=== PATIENT | male | born 1995 | race American Indian/Alaskan Native ===

== ENCOUNTER 2017-01-12 13:52 | Emergency (ER) | payer OTHER ==
--- NOTE | 2017-01-12 14:05 | Emergency Department Report ---
Chief Complaint: Nausea/Vomiting/Diarrhea Stated Complaint: SORE THROAT Time Seen by Provider: 01/12/17 14:05 - HPI History of Present Illness: 21-year-old male presents to ED with left-sided throat pain and pain with swallowing 3 days. Patient was seen here 2 days ago but states symptoms have gotten worse. He states that his throat is gotten bigger and more painful. He admits mild nausea and difficulty eating or swallowing due to pain He denies fever/chills/ - ROS Review of Systems: As noted in HPI - Exam Vital Signs: Vital Signs 01/12/17 13:56 Temperature 99 F Pulse Rate 55 L Respiratory 18 Rate Blood Pressure 144/91 O2 Sat by Pulse 100 Oximetry Physical Exam: GENERAL: Alert and oriented x3, no apparent distress, Normal Gait, atraumatic. EARS: symetrical, atraumatic, non tender, ear canal clear and moderate cerumen, tympanic membrance non inflamed. gross auditory nml bilaterally. MOUTH:Mouth is well hydrated and without lesions. left Tonsil erythematous and swollen, Uvula midline, Tongue not elevated. Mucous membranes are moist. Posterior pharynx clear, no exudate or lesions. Patent airways. NECK: Supple. Non edematous, left-sided lymphadenopathy MSE screening note: Focused history and physical exam performed. Due to findings the following was ordered: ED Medical Decision Making - Medical Decision Making 21-year-old male presents with peritonsillar abscess CBC, CMP, mono test ordered. consider CT neck with IV contrast is x-ray not definitive - Differential Diagnosis 1. Peritonsillar abscess ED Disposition for MSE Condition: Stable
--- NOTE | 2017-01-12 14:41 | XRay Report ---
Soft tissue neck 2 views: History: Varicocele swelling neck pain. Findings: Laryngeal ventricular colon appears normal. The paravertebral soft tissue appears normal. Impression: Essentially negative soft tissue neck.
[2017-01-12 15:05] LABS: Alanine Aminotransferase 9 units/L (7-56); Albumin 4.4 g/dL (3.9-5); Albumin/Globulin Ratio 1.2 %; Alkaline Phosphatase 53 units/L (35-129); Anion Gap 18 mmol/L; BUN/Creatinine Ratio 13; Blood Urea Nitrogen 9 mg/dL (9-20); Calcium 9.8 mg/dL (8.4-10.2); Carbon Dioxide 31 mmol/L (22-30); Glucose 111 mg/dL (75-100); Potassium 4.6 mmol/L (3.6-5.0); Sodium 139 mmol/L (137-145); Total Protein 8.1 g/dL (6.3-8.2)
[2017-01-12 15:22] LABS: Basophils % (Auto) 0.3 % (0.0-1.8); Hematocrit 42.5 % (35.5-45.6); Hemoglobin 14.8 gm/dl (11.8-15.2); Mean Corpuscular HGB Conc 35 % (32-34); Mean Corpuscular Hemoglobin 31 pg (28-32); Mean Corpuscular Volume 89 fl (84-94); Platelet Count 240 K/mm3 (140-440); Red Blood Count 4.81 M/mm3 (3.65-5.03); Red Cell Distribution Width 13.2 % (13.2-15.2); White Blood Count 10.2 K/mm3 (4.5-11.0)
[2017-01-12] MEDS ORDERED: ZOFRAN IV ONE (16:34)
[2017-01-12] MEDS ORDERED: CLEOCIN 900 MG/50 mL 900 MG/50 ML BAG IV ONE (16:34)
[2017-01-12] MEDS ORDERED: DECADRON IV ONE (16:34)
--- NOTE | 2017-01-12 16:40 | Emergency Department Report ---
ED General Adult HPI - General Chief complaint: Nausea/Vomiting/Diarrhea Stated complaint: SORE THROAT Time Seen by Provider: 01/12/17 14:05 Source: patient Mode of arrival: Ambulatory Limitations: No Limitations - History of Present Illness Initial comments: Patient is 21 years old male, this is his second visit to the ER he was seen here 2 days ago for upper respiratory infection. Patient stated that he is not feeling better and he is having pain in his left throat specially when he swallow. Denied any difficulty breathing or shortness of breath. Patient also reported nausea and vomiting. - Related Data Previous Rx's Medication Instructions Recorded Last Taken Type Clindamycin [Clindamycin CAP] 300 mg PO Q8H #21 cap 01/12/17 Unknown Rx HYDROcodone/APAP 5-325 [[place] 1 each PO Q6HR PRN #14 tablet 01/12/17 Unknown Rx 5/325] Ondansetron [Zofran Odt] 4 mg PO Q8HR PRN #14 tab.rapdis 01/12/17 Unknown Rx Prednisone [predniSONE 10 mg 10 mg PO .TAPER #1 tab.ds.pk 01/12/17 Unknown Rx (6-Day Pack, 21 Tabs)] Allergies Allergy/AdvReac Type Severity Reaction Status Date / Time No Known Allergies Allergy Verified 01/12/17 14:01 ED Review of Systems ROS: Stated complaint: SORE THROAT Other details as noted in HPI Comment: All other systems reviewed and negative Constitutional: fever. denies: chills ENT: throat pain. denies: dental pain, hearing loss Respiratory: denies: cough, orthopnea, shortness of breath, SOB with exertion Cardiovascular: denies: chest pain, palpitations, dyspnea on exertion Gastrointestinal: nausea, vomiting. denies: abdominal pain, diarrhea, constipation, hematemesis Genitourinary: denies: urgency, dysuria, frequency, hematuria Neurological: denies: headache, weakness, numbness, paresthesias ED Past Medical Hx - Past Medical History Previous Medical History?: No - Surgical History Past Surgical History?: No - Social History Smoking Status: Former Smoker Substance Use Type: None - Medications Home Medications: Home Medications Medication Instructions Recorded Confirmed Last Taken Type Clindamycin [Clindamycin CAP] 300 mg PO Q8H #21 cap 01/12/17 Unknown Rx HYDROcodone/APAP 5-325 [[place] 1 each PO Q6HR PRN #14 tablet 01/12/17 Unknown Rx 5/325] Ondansetron [Zofran Odt] 4 mg PO Q8HR PRN #14 tab.rapdis 01/12/17 Unknown Rx Prednisone [predniSONE 10 mg 10 mg PO .TAPER #1 tab.ds.pk 01/12/17 Unknown Rx (6-Day Pack, 21 Tabs)] ED Physical Exam - General Limitations: No Limitations General appearance: alert, in no apparent distress - Head Head exam: Present: atraumatic, normocephalic, normal inspection - Eye Eye exam: Present: normal appearance - ENT ENT exam: Present: other (pharyngeal erythema, left paratonsillar swelling questionable abscess) - Neck Neck exam: Present: normal inspection, tenderness, full ROM. Absent: meningismus, lymphadenopathy - Respiratory Respiratory exam: Present: normal lung sounds bilaterally. Absent: respiratory distress, wheezes, rales, stridor, decreased breath sounds, prolonged expiratory - Cardiovascular Cardiovascular Exam: Present: bradycardia, normal heart sounds - GI/Abdominal GI/Abdominal exam: Present: soft, normal bowel sounds. Absent: distended, tenderness, guarding, rebound, rigid, mass, bruit - Extremities Exam Extremities exam: Present: normal inspection, full ROM, normal capillary refill - Back Exam Back exam: Present: normal inspection. Absent: CVA tenderness (R), CVA tenderness (L) - Neurological Exam Neurological exam: Present: alert, oriented X3, CN II-XII intact, normal gait - Skin Skin exam: Present: warm, intact, normal color ED Course Vital Signs 01/12/17 01/12/17 01/12/17 13:56 16:16 16:28 Temperature 99 F 99.3 F Pulse Rate 55 L 54 L Respiratory 18 18 16 Rate Blood Pressure 144/91 Blood Pressure 124/61 [Left] O2 Sat by Pulse 100 99 98 Oximetry 01/12/17 19:54 Temperature Pulse Rate 56 L Respiratory 16 Rate Blood Pressure Blood Pressure 128/62 [Left] O2 Sat by Pulse 100 Oximetry - Reevaluation(s) Reevaluation #1: 01/12/17 20:11 Patient stated that he is feeling much better and able to swallow no airway compromise. ED Medical Decision Making - Lab Data Result diagrams: 01/12/17 14:26 01/12/17 14:26 - Radiology Data Radiology results: report reviewed CT neck was IV contrast showed possible peritonsillar abscess with necrosis, mass cannot be excluded. Discussed with Dr. Nicholas from [facility], he stated that patient can be treated with clindamycin and steroid and to follow-up if symptoms is not improving. Critical care attestation.: If time is entered above; I have spent that time in minutes in the direct care of this critically ill patient, excluding procedure time. ED Disposition Clinical Impression: Peritonsillar abscess Disposition: TO HOME OR SELFCARE Is pt being admited?: No Condition: Stable Instructions: Peritonsillar Abscess (ED) Prescriptions: Clindamycin [Clindamycin CAP] 300 mg PO Q8H #21 cap HYDROcodone/APAP 5-325 [[place] 5/325] 1 each PO Q6HR PRN #14 tablet PRN Reason: Pain Ondansetron [Zofran Odt] 4 mg PO Q8HR PRN #14 tab.rapdis PRN Reason: Nausea And Vomiting Prednisone [predniSONE 10 mg (6-Day Pack, 21 Tabs)] 10 mg PO .TAPER #1 tab.ds.pk Referrals: PRIMARY CARE, [Primary Care Provider] - 3-5 Days
--- NOTE | 2017-01-12 18:21 | Cat Scan Report ---
FINAL REPORT PROCEDURE: CT NECK W CON TECHNIQUE: Computerized axial tomography of the soft tissue neck was performed following the IV injection of iodinated nonionic contrast. HISTORY: ? peritonsillar abscess. Neck pain. COMPARISON: No prior studies are available for comparison. FINDINGS: The parotid glands and submandibular glands as well as the thyroid gland are unremarkable. The larynx showed no abnormalities. The left tonsil appears to be enlarged and has encroaching on the left parapharyngeal space. In the lateral aspect of the left tonsil there is an area of decreased density measuring 1.6 x 1.4 centimeters which may represent a peritonsillar abscess or necrosis of the left tonsil. A mass in the left tonsil with necrosis cannot be entirely excluded. The right tonsil is unremarkable. This is best visualized on coronal image 53 series 201 and axial image 87 series 2. Adenopathy is seen in the left side of the neck extending along the vascular bundle. Lymph nodes are visualized measuring up to 11 millimeters x 11 millimeters. IMPRESSION: Enlarged left tonsil with peripheral area of decreased density as described suggesting an peritonsillar abscess or necrosis. Solid mass with necrosis cannot be entirely excluded. There is mild diffuse adenopathy seen along the vascular bundle in the left side of the neck.
[2017-01-12] MEDS ORDERED: TORADOL IV ONE (19:10)
[2017-01-12 19:55] VITALS: BP 128/62
== END 2017-01-12 20:32 | disposition home or self-care (01) ==
LOC: ED 13:52
DX: J36 Peritonsillar abscess (principal); Z87.891 Personal history of nicotine dependence
CPT/HCPCS: 36415; 70360; 70491; 80053; 85025; 86308; 87116; 87430; 96365; 96375; 99284; J1100; J1885; J2405; Q9967